=== PATIENT | male | born 1985 | race American Indian/Alaskan Native ===

== ENCOUNTER 2017-02-21 23:10 | Emergency (ER) | payer OTHER ==
[2017-02-21 23:30] VITALS: BP 127/82
--- NOTE | 2017-02-22 02:14 | Emergency Department Report ---
Eye Injury/Foreign Body - HPI Duration: 4 Days Eye Location: Right Tetanus Status: Not up to Date Eye Symptoms: Eye Pain: No, Blurred Vision: No, Eye Redness: Yes, Grinding/ Hammering Metal: No, Used Eye Protection: No, Contact Lens Use: No, Recalls Injury: No, Photophobia: No Other History: 32-year-old male past medical history severe eczema presents with complaint of right-sided eye irritation. Denies any direct trauma denies any fevers or chills. States he has had some watery drainage from eye for the last 4 days. Denies any blurry vision. Primarily complaining of itching and irritation right eye. Visible conjunctival redness right eye. ED Review of Systems ROS: Stated complaint: RIGHT EYE PAIN Other details as noted in HPI Constitutional: denies: chills, fever Eyes: eye pain, eye discharge (water discharge right eye). denies: vision change ENT: denies: ear pain, throat pain Respiratory: denies: cough, shortness of breath, wheezing Cardiovascular: denies: chest pain, palpitations Endocrine: no symptoms reported Gastrointestinal: denies: abdominal pain, nausea, diarrhea Genitourinary: denies: urgency, dysuria Musculoskeletal: denies: back pain, joint swelling, arthralgia Skin: denies: rash, lesions Neurological: denies: headache, weakness, paresthesias Psychiatric: denies: anxiety, depression Hematological/Lymphatic: denies: easy bleeding, easy bruising ED Past Medical Hx - Past Medical History Previous Medical History?: Yes Hx Asthma: Yes Additional medical history: ecemia - Surgical History Past Surgical History?: No - Social History Smoking Status: Current Every Day Smoker Substance Use Type: Alcohol - Medications Home Medications: Home Medications Medication Instructions Recorded Confirmed Last Taken Type ALBUTEROL Inhaler [Proair] 2 puff IH QID PRN 07/11/13 07/11/13 07/10/13 History Albuterol Sulfate [Ventolin HFA] 2 puff IH Q4H PRN #1 hfa.aer.ad 07/11/13 Unknown Rx Acetaminophen/Codeine [Tylenol #3] 1 tab PO Q6H PRN #20 tab 10/09/15 Unknown Rx Amoxicillin/K Clav Tab [Augmentin 1 tab PO Q12HR #20 tab 10/09/15 Unknown Rx 875 mg] Ibuprofen [Motrin] 600 mg PO Q8H PRN #40 tablet 10/09/15 Unknown Rx Glycerin/Propylene Glycol 1 drop OP Q6H PRN #1 drops 02/22/17 Unknown Rx [Artificial Tears Drops] Ibuprofen [Motrin] 600 mg PO Q8H PRN #30 tablet 02/22/17 Unknown Rx Naphazoline HCl/Pheniramine 1 drop OP Q4H PRN #1 drops 02/22/17 Unknown Rx [Naphcon-A Eye Drops] Tobramycin 0.3% [Tobrex] 1 drop OD Q4H #1 bottle 02/22/17 Unknown Rx Eye Injury Exam - Exam General: Vital signs noted. No distress. Alert and acting appropriately. - Visual Acuity Right Vision Acuity Degree: 20/20 Eye Exam: Right Injection, Right Chemosis, Both EOMI, Neither Fluorescein Uptake ED Course Vital Signs 02/21/17 02/21/17 23:27 23:59 Temperature 97.6 F 97.6 F Pulse Rate 87 87 Respiratory 18 17 Rate Blood Pressure 127/82 127/82 O2 Sat by Pulse 98 98 Oximetry ED Medical Decision Making - Medical Decision Making A/P: Allergic versus bacterial conjunctivitis versus viral conjunctivitis 1-tobramycin drops, artificial tears, Naphcon-A 2-visual acuity 20/30 bilaterally, 20/20 left eye, 20/40 right eye. No fluorescein uptake 3-follow-up with ophthalmology 4- Motrin when necessary Critical care attestation.: If time is entered above; I have spent that time in minutes in the direct care of this critically ill patient, excluding procedure time. ED Disposition Clinical Impression: Conjunctivitis Qualifiers: Conjunctivitis type: acute Acute conjunctivitis type: unspecified Laterality: right Qualified Code(s): H10.31 - Unspecified acute conjunctivitis, right eye Disposition: DC-01 TO HOME OR SELFCARE Is pt being admited?: No Does the pt Need Aspirin: No Condition: Stable Instructions: Conjunctivitis (ED) Prescriptions: Glycerin/Propylene Glycol [Artificial Tears Drops] 1 drop OP Q6H PRN #1 drops PRN Reason: Dry Eye(S) Ibuprofen [Motrin] 600 mg PO Q8H PRN #30 tablet PRN Reason: Pain Naphazoline HCl/Pheniramine [Naphcon-A Eye Drops] 1 drop OP Q4H PRN #1 drops PRN Reason: Dry Eye(S) Tobramycin 0.3% [Tobrex] 1 drop OD Q4H #1 bottle Referrals: KARINA DOUGHERTY MD [Staff Physician] - 3-5 Days LYNDON SAVAGE MD [Staff Physician] - 3-5 Days Forms: Work/School Release Form(ED) Time of Disposition: 02:13
== END 2017-02-22 02:35 | disposition home or self-care (01) ==
LOC: ED 23:10
DX: H10.9 Unspecified conjunctivitis (principal); F17.200 Nicotine dependence, unspecified, uncomplicated
CPT/HCPCS: 99282

== ENCOUNTER 2017-10-30 21:22 | Emergency (ER) | payer SELFPAY ==
[2017-10-30 22:43] VITALS: BP 134/87
== END 2017-10-31 07:55 | disposition left against medical advice (07) ==
LOC: ED 21:22
DX: M79.671 Pain in right foot (principal); Z53.21 Procedure and treatment not carried out due to patient leaving prior to being seen by health care provider

== ENCOUNTER 2018-05-26 19:22 | Emergency (ER) | payer OTHER ==
--- NOTE | 2018-05-26 20:55 | Emergency Department Report ---
Blank Doc - Documentation Documentation: This is a 33 y.o. male that presents with right eye pain that started yesterday. Reports photophobia. This initial assessment diagnostic orders/clinical plan/treatment (s) is/Are subject change based on patient's health status, clinical progression and re- assessment by fellow clinical providers in the ED. Further treatment and work-up at subsequent clinical providers discretion. Patient/guardians urged not to elope from their condition may be serious if not clinically assessed and managed. Initial order include: Fast Track for further evaluation.
--- NOTE | 2018-05-27 01:23 | Emergency Department Report ---
ED Eye Problem HPI - General Chief complaint: Eye Problems Stated complaint: R EYE PAIN Time Seen by Provider: 05/26/18 20:52 Source: patient Mode of arrival: Ambulatory Limitations: No Limitations - Related Data Home Medications Medication Instructions Recorded Confirmed Last Taken ALBUTEROL Inhaler (OR & NICU) 2 puff IH QID PRN 07/11/13 07/11/13 07/10/13 [Proair] Previous Rx's Medication Instructions Recorded Last Taken Type Albuterol Sulfate [Ventolin HFA] 2 puff IH Q4H PRN #1 hfa.aer.ad 07/11/13 Unknown Rx Amoxicillin/K Clav Tab [Augmentin 1 tab PO Q12HR #20 tab 10/09/15 Unknown Rx 875 mg] Glycerin/Propylene Glycol 1 drop OP Q6H PRN #1 drops 02/22/17 Unknown Rx [Artificial Tears Drops] Ibuprofen [Motrin] 600 mg PO Q8H PRN #30 tablet 02/22/17 Unknown Rx Naphazoline HCl/Pheniramine 1 drop OP Q4H PRN #1 drops 02/22/17 Unknown Rx [Naphcon-A Eye Drops] Tobramycin 0.3% [Tobrex] 1 drop OD Q4H #1 bottle 02/22/17 Unknown Rx Acetaminophen/Codeine [Tylenol 1 tab PO Q6H PRN #9 tab 05/27/18 Unknown Rx /Codeine # 3 tab] Erythromycin [Erythromycin Ophth 1 applic OP QID #1 tube 05/27/18 Unknown Rx Oint] Ibuprofen [Motrin 600 MG tab] 600 mg PO Q8H PRN #40 tablet 05/27/18 Unknown Rx Triamcinolone 0.5% [Kenalog 0.5% 1 applic TP TID #30 gm 05/27/18 Unknown Rx CREAM] Allergies Allergy/AdvReac Type Severity Reaction Status Date / Time seafood Allergy Shortness Uncoded 07/11/13 18:51 of Breath ED Review of Systems ROS: Stated complaint: R EYE PAIN Other details as noted in HPI ED Past Medical Hx - Past Medical History Previous Medical History?: Yes Hx Asthma: Yes Additional medical history: eczema - Surgical History Past Surgical History?: No - Social History Smoking Status: Current Every Day Smoker Substance Use Type: None - Medications Home Medications: Home Medications Medication Instructions Recorded Confirmed Last Taken Type ALBUTEROL Inhaler (OR & NICU) 2 puff IH QID PRN 07/11/13 07/11/13 07/10/13 History [Proair] Albuterol Sulfate [Ventolin HFA] 2 puff IH Q4H PRN #1 hfa.aer.ad 07/11/13 Unknown Rx Amoxicillin/K Clav Tab [Augmentin 1 tab PO Q12HR #20 tab 10/09/15 Unknown Rx 875 mg] Glycerin/Propylene Glycol 1 drop OP Q6H PRN #1 drops 02/22/17 Unknown Rx [Artificial Tears Drops] Ibuprofen [Motrin] 600 mg PO Q8H PRN #30 tablet 02/22/17 Unknown Rx Naphazoline HCl/Pheniramine 1 drop OP Q4H PRN #1 drops 02/22/17 Unknown Rx [Naphcon-A Eye Drops] Tobramycin 0.3% [Tobrex] 1 drop OD Q4H #1 bottle 02/22/17 Unknown Rx Acetaminophen/Codeine [Tylenol 1 tab PO Q6H PRN #9 tab 05/27/18 Unknown Rx /Codeine # 3 tab] Erythromycin [Erythromycin Ophth 1 applic OP QID #1 tube 05/27/18 Unknown Rx Oint] Ibuprofen [Motrin 600 MG tab] 600 mg PO Q8H PRN #40 tablet 05/27/18 Unknown Rx Triamcinolone 0.5% [Kenalog 0.5% 1 applic TP TID #30 gm 05/27/18 Unknown Rx CREAM] ED Physical Exam - General Limitations: No Limitations ED Course Vital Signs 05/26/18 05/26/18 19:40 20:53 Temperature 98.2 F 98.2 F Pulse Rate 106 H 104 H Respiratory 16 16 Rate Blood Pressure 126/82 126/82 O2 Sat by Pulse 99 98 Oximetry Critical care attestation.: If time is entered above; I have spent that time in minutes in the direct care of this critically ill patient, excluding procedure time. ED Disposition Clinical Impression: Corneal abrasion, right Qualifiers: Encounter type: initial encounter Qualified Code(s): S05.01XA - Injury of conjunctiva and corneal abrasion without foreign body, right eye, initial encounter Disposition: - TO HOME OR SELFCARE Is pt being admited?: No Does the pt Need Aspirin: No Condition: Stable Instructions: Corneal Abrasion (ED) Additional Instructions: Please use eye ointment antibiotics to your right eye as prescribed. It is very important for you to follow-up with an player services representative I have listed several below for your convenience. Please use triamcinolone cream to your eczema rashes. Prescriptions: Acetaminophen/Codeine [Tylenol /Codeine # 3 tab] 1 tab PO Q6H PRN #9 tab PRN Reason: Pain Erythromycin [Erythromycin Ophth Oint] 1 applic OP QID #1 tube Ibuprofen [Motrin 600 MG tab] 600 mg PO Q8H PRN #40 tablet PRN Reason: Pain Triamcinolone 0.5% [Kenalog 0.5% CREAM] 1 applic TP TID #30 gm Referrals: [facility] MD ELIGIO [Primary Care Provider] - 3-5 Days LYNDON SAVAGE MD [Staff Physician] - 3-5 Days [facility] [Provider Group] - 3-5 Days [facility], [facility] [Provider Group] - 3-5 Days Forms: Work/School Release Form(ED)
== END 2018-05-27 02:02 | disposition home or self-care (01) ==
LOC: ED 19:22
CPT/HCPCS: 99282